=== PATIENT | female | born 1955 | race Caucasian/White ===

== ENCOUNTER 2017-03-09 11:36 | Emergency (ER) | payer MEDICARE, MEDICAID ==
[~2017-03-09] VITALS: Ht 162.6 cm; Wt 99.0 kg
[~2017-03-09 11:36] MED LIST: DEFE500T PO; LEVO100T5 PO; LORA0.5T PO; RISP2TAB3 PO; TRAZ50TA18 PO; VENL75CA PO
[2017-03-09 11:39] VITALS: BP 162/84
== END 2017-03-09 12:29 | disposition home or self-care (01) ==
LOC: ED 12:27
DX: M25.562 Pain in left knee (principal); F17.210 Nicotine dependence, cigarettes, uncomplicated
CPT/HCPCS: 99283

== ENCOUNTER 2020-07-26 02:19 | Emergency (ER) | payer MEDICARE, MEDICAID ==
[~2020-07-26] VITALS: Ht 162.6 cm; Wt 136.0 kg
[~2020-07-26 02:19] MED LIST changes: -RISP2TAB3 PO; +RISP2TAB80 PO; -TRAZ50TA18 PO; +TRAZ50TA66 PO
[2020-07-26 02:28] VITALS: BP 155/88
[2020-07-26 02:46] LABS: BASOPHILS % (AUTO) 1 % (0-1); EOSINOPHILS % (AUTO) 0 % (1-7); LYMPHOCYTES % (AUTO) 12 % (22-44); MEAN CORPUSCULAR HEMOGLOBIN 27.8 pg (27.0-34.8); MEAN CORPUSCULAR HGB CONC 32.1 g/dL (32.4-35.8); MEAN PLATELET VOLUME 10.7 fL (7.4-10.4); MONOCYTES % (AUTO) 8 % (2-9); NEUTROPHILS % (AUTO) 79 % (42-75); PLATELET COUNT 169 x10^3/uL (130-400); RED CELL DISTRIBUTION WIDTH 16.7 % (9.6-15.2)
[2020-07-26 02:49] LABS: MD NO
--- NOTE | 2020-07-26 02:51 | NUR ---
"IM IN DANGER. IM WORRIED ABOUT MY SON GAYLE. 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 "IM NOT GOING TO ANSWER TOO MANY MORE QUESTIONS OR IM GOING TO WANT A LENS COATING TECHNICIAN" PT CRYING INTERMITTANTLY. PT CHELSEA DUMONT, SHE TOLD EMS SHE WAS SUICIDAL BUT UPON ARRIVAL TO ED PT DENIES ANY SI OR HI. NO RECENT HX SI, PER PT. ALL BELONGINGS PLACED IN PT BAG AND REMOVED FROM ROOM. SITTER IN HALLWAY FOR FREQUENT CHECKS.
[2020-07-26 02:58] LABS: ALANINE AMINOTRANSFERASE 32 U/L (12-78); ANION GAP 7 mmol/L (5-15); CALCIUM 8.7 mg/dL (8.5-10.1); CHLORIDE 105 mmol/L (98-107); SALICYLATE LEVEL 4.3 mg/dL (2.8-20.0)
--- NOTE | 2020-07-26 02:58 | NUR ---
REPORT TO PRIMARY RN, FATIMAH
--- NOTE | 2020-07-26 03:01 | NUR ---
ALL PERSONAL BELONGINGS REMOVED FROM ROOM. PT REQUESTING RAILROAD FIRER AGAIN. FREQUENT CHECKS AND ROUNDING ON PATIENT. PT SCREAMING OUT FOR SON AND DOG. PT PROVIDED WATER FOR UA.
[2020-07-26 03:09] LABS: ALKALINE PHOSPHATASE 58 U/L (45-117); BILIRUBIN,TOTAL 0.3 mg/dL (0.2-1.0); TOTAL PROTEIN 7.8 g/dL (6.4-8.2)
[2020-07-26] MEDS ORDERED: LORazepam 2 MG/ML, 1ML IM ONE (03:30)
[2020-07-26] MEDS ORDERED: ZIPRASIDONE 20 MG INJ IM ONE ×2 (03:30→04:25)
--- NOTE | 2020-07-26 04:08 | NUR ---
PT UP TO RESTROOM WITH STEADY GAIT, REFUSED TO GIVE UA. HAD LARGE BM IN HALLWAY AND RESTROOM. PT ON PHONE CALLING SONS.
--- NOTE | 2020-07-26 04:30 | NUR ---
PT YELLING, VERY UPSET STATING SHE WANTS TO KILL HERSELF AND DEMANDING RN GIVE HER A GUN. SITTER AT DOORWAY. GARAGE DOORSX2, SI PRECAUTIONS IN PLACE.
--- NOTE | 2020-07-26 04:40 | NUR ---
PRECEPTOR RN: PT WITH INCREASING AGGITATION. AFTER MUCH CONVINCING, PT ALLOWED ME TO TO GIVE HER AN IM SHOT. PT WITH FECES ON HER FEET. PT NOT ALLOWING ME TO CLEAN HER FEET AT THIS TIME. ONCE SHE FALLS ASLEEP, I WILL CLEAN THE FECES FROM HER FEET.
--- NOTE | 2020-07-26 04:59 | NUR ---
PRECEPTOR: I PROVIDED A TOWEL FOR PT TO CLEAN HERSELF. AFTER I LEFT THE ROOM I COULD SEE HER USING IT TO CLEAN THE FECES FROM HER FEET.
[2020-07-26 05:07] LABS: MICROSCOPIC INDICATED
--- NOTE | 2020-07-26 05:10 | NUR ---
PT IN ROOM SCREAMING. SITTER AT DOORWAY
[2020-07-26 05:22] LABS: AMPHETAMINE SCREEN, URINE Negative (Negative); BARBITURATE SCREEN, URINE Negative (Negative); BENZODIAZEPINE SCREEN, URINE Negative (Negative); CANNABINOID SCREEN, URINE Negative (Negative); COCAINE SCREEN, URINE Negative (Negative); METHADONE SCREEN, URINE Negative (Negative); OPIATE SCREEN, URINE Positive (Negative)
--- NOTE | 2020-07-26 05:25 | NUR ---
PT IN [facility], EYES SHUT. SITTER AT DOORWAY
--- NOTE | 2020-07-26 06:55 | NUR ---
JACKELYN RN: PACKET FAXED TO [facility], [facility], [facility], AND [facility].
--- NOTE | 2020-07-26 07:00 | NUR ---
REPORT FROM FATIMAH RN WITH ASSESSMENT PATIENT RESTING COMFORTABLY ON HOSPITAL BED EVEN CHEST RISE NOTED WILL WAIT FOR BREAKFAST DELIVERY TO ROUSE PATIENT FOR FULL ASSESSMENT HOSPITAL BED ORDERED
--- NOTE | 2020-07-26 07:04 | NUR ---
REPORT GIVEN TO EPHRAIM CALVO
--- NOTE | 2020-07-26 08:30 | NUR ---
pATIENT WITH DRIED STOOL TO LEGS- REFUSING TO ALLOW CLEANERS TO CLEANSE. aTTEMPTED TO TALK HER INTO TAKING A SHOWER. ATTEMPT ONLY MADE HER MORE ANXIOUS
--- NOTE | 2020-07-26 08:36 | NUR ---
ESTRELLITAU verifying ins.
--- NOTE | 2020-07-26 09:01 | NUR ---
PATIENT WOKEN UP FOR ASSESMENT/BREAKFAST WITH ASSESSMENT PATIENT CALM/PATIENT. DENIES CURRIET SI/HI/EXTERNAL STIMULI ETC. ASKING FOR SOME TYLENOL FOR BACK PAIN/TO BE DISCHARGED HOME TO HER DOG. REYNA CALVO MADE AWARE OF ASSESSMENT ROOM IN CONTROLLED PSYCHIATRIC ROOM/SITTER WITH LINE OF SITE AT ALL TIME
--- NOTE | 2020-07-26 09:25 | NUR ---
PATIENT NIELS AWAKE. HYSTERICAL. YOU ARE TRYING TO KILL ME. MY SON SAY I SHOULDN'T BE HERE. aPPEARS TO BE RESPONDING TO EXTERNAL STIMULI U COVID SWAB OBTAINED PER PROTOCOL -WALKED TO LAB
[2020-07-26] MEDS ORDERED: LORazepam 2 MG/ML, 1ML ONE (09:27)
[2020-07-26] MEDS ORDERED: ACETAMINOPHEN 500 MG TABLET ONE (09:28)
[2020-07-26] MEDS ORDERED: ONDANSETRON ODT 4 MG ONE (09:28)
[2020-07-26] MEDS ORDERED: ACETAMINOPHEN 500 MG TABLET PO ONE (09:30)
[2020-07-26] MEDS ORDERED: ONDANSETRON ODT 4 MG PO ONE (09:30)
--- NOTE | 2020-07-26 09:35 | NUR ---
MEDICATED PER EMAR WITH 1MG OF ATIVAN (PATIENT AGREEABLY RECEIVED INJECTION) TYLENOL AND ZOFRAN FOR AGITATION/HYSTERIA
--- NOTE | 2020-07-26 10:50 | NUR ---
ATTEMPT 2 TO GET PATIENT CLEANED UP PATIENT WITH DRIED STOOL TO LEGS- REFUSING TO ALLOW MACHINE SILK SCREEN PRINTER TO CLEANSE. ATTEMPTED TO TALK HER INTO TAKING A SHOWER. ATTEMPT ONLY MADE HER MORE ANXIOUS
--- NOTE | 2020-07-26 12:06 | NUR ---
PATIENT HELPED NTO SHOWER ROOM. PROTEOMICS SCIENTIST AND EMT COLLEGUE HELP HER SHOWER FROM HEAD TO TOE. HELPED BACK TO [facility] IN PREPARATION FOR TRANSFER TO U SHORTLY REMAINS CALM/PLEASANT POST ATIVAN ADMINISTRATION
--- NOTE | 2020-07-26 12:50 | NUR ---
REPORT TO APRIL CALVO IN [facility]
[2020-07-26] MEDS ORDERED: METF500T17 PO (16:34)
[2020-07-26] MEDS ORDERED: RISP4TAB34 PO (16:34)
[2020-07-26] MEDS ORDERED: VENL150C PO (16:34)
[2020-07-26] MEDS ORDERED: MONT10TA6 PO (16:34)
[2020-07-26] MEDS ORDERED: LISI-170 PO (16:34)
[2020-07-26] MEDS ORDERED: FLUT12AE INH (16:34)
== END 2020-07-26 13:24 ==
LOC: ED 03:43
DX: F22 Delusional disorders (principal); F20.9 Schizophrenia, unspecified; R00.0 Tachycardia, unspecified
CPT/HCPCS: 36415; 80053; 80307; 81001; 84443; 85025; 87086; 87426; 96372; 99285; J2060; J3486; Q0162